=== PATIENT | male | born 1965 | race Two or more races ===

== ENCOUNTER 2020-06-09 22:21 | Inpatient (IN) | payer MEDICAID ==
[~2020-06-09] VITALS: Ht 172.7 cm; Wt 68.9 kg
[2020-06-09] MEDS ORDERED: ASPIRIN 81MG TABLET PO ONE (23:30)
[2020-06-10 00:09] LABS: HEMATOCRIT. 33.8 % (42.0-52.0); HEMOGLOBIN. 11.6 g/dL (14.0-18.0); MEAN CORPUSCULAR VOLUME 81.8 fL (80.0-94.0); MEAN PLATELET VOLUME 9.6 fl (7.4-10.4); PLATELET 204 x1000/uL (130-400); RED BLOOD CELL COUNT 4.13 mill/uL (4.7-6.1); RED CELL DISTRIBUTION WIDTH 13.9 % (11.6-14.6)
[2020-06-10 00:17] LABS: CHLORIDE 96 mEq/L (98-107)
[2020-06-10] MEDS ORDERED: AZITHROMYCIN 500 MG TABLET PO ONE (00:45)
[2020-06-10] MEDS ORDERED: CEFTRIAXONE 1 G PREMIX 50 ML IV ONE (00:45)
[2020-06-10] MEDS ORDERED: ALBUTEROL 6.7GM HFA INHALER ORI PRN (02:15)
[2020-06-10] MEDS ORDERED: MAGNESIUM/ALUMINUM HYDROXIDE/SIMETHICONE 30ML UDC PO PRN (02:15)
[2020-06-10] MEDS ORDERED: ONDANSETRON HCL 4MG/2ML INJ IV PRN (02:15)
[2020-06-10] MEDS ORDERED: ACETAMINOPHEN 325MG TABLET PO PRN (02:15)
[2020-06-10] MEDS ORDERED: DEXTROSE 50% WATER 50ML SYRINGE IV PRN (02:15)
[2020-06-10] MEDS ORDERED: CLONIDINE 0.1MG TABLET PO PRN (02:15)
[2020-06-10] MEDS ORDERED: LORAZEPAM 0.5MG TABLET PO PRN (02:15)
[2020-06-10 04:46] LABS: PLATELET ESTIMATE NORMAL
[2020-06-10 06:52] VITALS: BP 113/73
[2020-06-10] MEDS: BLOOD SUGAR DIAGNOSTIC STRIP TEST SCH ×4 (07:40→20:15)
[2020-06-10 08:00] VITALS: BP 104/56
[2020-06-10] MEDS ORDERED: DEXAMETHASONE 4MG TABLET PO SCH (09:00)
[2020-06-10] MEDS: GUAIFENESIN 600MG ER TABLET PO SCH ×2 (09:08→20:20)
[2020-06-10] MEDS: ENOXAPARIN 80MG/0.8ML SYR SUBCUT SCH ×2 (09:09→20:21)
[2020-06-10] MEDS: INSULIN LISPRO 100 UNITS/ML SUBCUT SCH ×4 (09:10→20:24)
[2020-06-10 09:53] LABS: INR 1.1; PROTHROMBIN TIME 11.2 sec (9.6-11.0)
[2020-06-10] MEDS ORDERED: INSULIN GLARGINE UD 100 UNITS/ML SYR SUBCUT SCH (10:00)
[2020-06-10 12:00] VITALS: BP 126/69
[2020-06-10 16:00] VITALS: BP 103/62
[2020-06-10 17:18] LABS: *BARBITURATES SCREEN URINE NEGATIVE (NEGATIVE)
[2020-06-10 17:19] LABS: *AMPHETAMINES SCREEN URINE NEGATIVE (NEGATIVE); *BENZODIAZEPINES SCREEN URINE NEGATIVE (NEGATIVE); *COCAINE SCREEN URINE NEGATIVE (NEGATIVE); CANNABINOID URINE SCREEN NEGATIVE (NEGATIVE); METHADONE URINE SCREEN NEGATIVE (NEGATIVE); OPIATES URINE SCREEN NEGATIVE (NEGATIVE)
[2020-06-10 17:20] LABS: PHENCYCLIDINE URINE SCREEN NEGATIVE (NEGATIVE)
[2020-06-10] MEDS: SODIUM CHLORIDE 0.9% INJ 3ML FLUSH IVF SCH (17:42)
[2020-06-10 20:00] VITALS: BP 109/67
[2020-06-10] MEDS ORDERED: ZOLPIDEM TARTRATE 5MG TABLET PO PRN (21:00)
[2020-06-11] VITALS: BP 94/55
[2020-06-11] MEDS: SODIUM CHLORIDE 0.9% INJ 3ML FLUSH IVF SCH ×4 (00:02→20:40)
[2020-06-11] MEDS ORDERED: CEFTRIAXONE 1,000 MG in DEXTROSE 5% WATER 50 ML IV SCH (01:30)
[2020-06-11] MEDS ORDERED: AZITHROMYCIN 500 MG in DEXT 5% WATER 250 ML IV SCH (02:00)
[2020-06-11 04:00] VITALS: BP 107/51
[2020-06-11 05:57] LABS: BASOPHILS % 0.2 % (0.0-2.0); HEMATOCRIT. 28.6 % (42.0-52.0); LYMPHOCYTES % 8.4 % (20.0-50.0); MEAN CORPUSCULAR HEMOGLOBIN 28.2 pg (28.0-32.0); MEAN CORPUSCULAR VOLUME 80.4 fL (80.0-94.0); MEAN PLATELET VOLUME 9.7 fl (7.4-10.4); MONOCYTES % 4.1 % (2.0-8.0); NEUTROPHILS % 87.3 % (40.0-76.0); PLATELET 166 x1000/uL (130-400); RED BLOOD CELL COUNT 3.56 mill/uL (4.7-6.1); RED CELL DISTRIBUTION WIDTH 13.8 % (11.6-14.6)
[2020-06-11] MEDS: BLOOD SUGAR DIAGNOSTIC STRIP TEST SCH ×4 (06:02→20:26)
[2020-06-11] MEDS: INSULIN LISPRO 100 UNITS/ML SUBCUT SCH ×4 (06:10→20:35)
[2020-06-11 08:00] VITALS: BP 117/62
[2020-06-11 08:47] LABS: CHLORIDE 98 mEq/L (98-107)
[2020-06-11] MEDS: GUAIFENESIN 600MG ER TABLET PO SCH ×2 (09:53→20:32)
[2020-06-11] MEDS: ENOXAPARIN 80MG/0.8ML SYR SUBCUT SCH ×2 (09:53→20:33)
[2020-06-11] MEDS ORDERED: INSULIN GLARGINE UD 100 UNITS/ML SYR SUBCUT SCH (10:00)
[2020-06-11 12:00] VITALS: BP 104/56
[2020-06-11 16:00] VITALS: BP 117/71
[2020-06-11 20:00] VITALS: BP 117/70
[2020-06-12] VITALS: BP 127/70
[2020-06-12] MEDS: CEFTRIAXONE 1,000 MG in DEXTROSE 5% WATER 50 ML IV SCH (02:06)
[2020-06-12] MEDS: AZITHROMYCIN 500 MG in DEXT 5% WATER 250 ML IV SCH (02:32)
[2020-06-12 04:00] VITALS: BP 99/55
[2020-06-12] MEDS: BLOOD SUGAR DIAGNOSTIC STRIP TEST SCH ×4 (05:34→21:00)
[2020-06-12] MEDS: SODIUM CHLORIDE 0.9% INJ 3ML FLUSH IVF SCH ×3 (05:34→20:41)
[2020-06-12] MEDS: INSULIN LISPRO 100 UNITS/ML SUBCUT SCH ×4 (06:19→22:11)
[2020-06-12 08:00] VITALS: BP 106/59
[2020-06-12] MEDS: GUAIFENESIN 600MG ER TABLET PO SCH ×2 (09:15→20:15)
[2020-06-12] MEDS: ENOXAPARIN 80MG/0.8ML SYR SUBCUT SCH (09:16)
[2020-06-12] MEDS ORDERED: INSULIN GLARGINE UD 100 UNITS/ML SYR SUBCUT SCH (10:00)
[2020-06-12] MEDS: INSULIN GLARGINE UD 100 UNITS/ML SYR SUBCUT SCH (11:29)
[2020-06-12 11:52] VITALS: BP 100/56
[2020-06-12] MEDS ORDERED: IPRATROPIUM/ALBUTEROL 0.5-3(2.5)MG/3ML NEB HHN PRN (14:00)
[2020-06-12 16:00] VITALS: BP 104/63
[2020-06-12 20:00] VITALS: BP 98/49
[2020-06-12] MEDS: IPRATROPIUM/ALBUTEROL 0.5-3(2.5)MG/3ML NEB HHN SCH (21:07)
[2020-06-13] VITALS: BP 112/63
[2020-06-13] MEDS: CEFTRIAXONE 1,000 MG in DEXTROSE 5% WATER 50 ML IV SCH (01:31)
[2020-06-13] MEDS: IPRATROPIUM/ALBUTEROL 0.5-3(2.5)MG/3ML NEB HHN SCH ×4 (01:31→20:46)
[2020-06-13] MEDS: AZITHROMYCIN 500 MG in DEXT 5% WATER 250 ML IV SCH (03:22)
[2020-06-13 04:00] VITALS: BP 98/60
[2020-06-13] MEDS: INSULIN LISPRO 100 UNITS/ML SUBCUT SCH ×4 (06:15→21:06)
[2020-06-13] MEDS: SODIUM CHLORIDE 0.9% INJ 3ML FLUSH IVF SCH ×3 (06:16→21:05)
[2020-06-13] MEDS: BLOOD SUGAR DIAGNOSTIC STRIP TEST SCH ×4 (06:16→21:07)
[2020-06-13 08:00] VITALS: BP 112/72
[2020-06-13] MEDS: INSULIN GLARGINE UD 100 UNITS/ML SYR SUBCUT SCH (09:52)
[2020-06-13 11:50] VITALS: BP 121/72
[2020-06-13] MEDS: GUAIFENESIN 600MG ER TABLET PO SCH ×2 (14:10→21:05)
[2020-06-13] MEDS: LEVOFLOXACIN 500MG TABLET PO SCH (15:56)
[2020-06-13 16:00] VITALS: BP 126/73
[2020-06-13 20:00] VITALS: BP 107/52
[2020-06-14] VITALS: BP 110/67
[2020-06-14] MEDS: IPRATROPIUM/ALBUTEROL 0.5-3(2.5)MG/3ML NEB HHN SCH ×4 (01:55→21:10)
[2020-06-14 04:00] VITALS: BP_SYST 105; BP_SYST 115; BP_DIAS 64; BP_DIAS 71
[2020-06-14] MEDS: SODIUM CHLORIDE 0.9% INJ 3ML FLUSH IVF SCH ×3 (06:00→22:00)
[2020-06-14] MEDS: BLOOD SUGAR DIAGNOSTIC STRIP TEST SCH ×4 (06:25→20:30)
[2020-06-14] MEDS: INSULIN LISPRO 100 UNITS/ML SUBCUT SCH ×4 (06:58→20:53)
[2020-06-14 07:53] VITALS: BP 109/70
[2020-06-14 09:09] LABS: ABSOLUTE EOSINOPHILS 0.1 x10E3/uL (0.0-0.4); ABSOLUTE LYMPHOCYTES 0.7 x10E3/uL (0.7-3.1); ABSOLUTE MONOCYTES 0.2 x10E3/uL (0.1-0.9); ABSOLUTE NEUTROPHILS 7.5 x10E3/uL (1.4-7.0); BASOPHILS 0 % (Not Estab.); HEMATOCRIT 31.5 % (37.5-51.0); HEMOGLOBIN 10.1 g/dL (13.0-17.7); IMMATURE GRANULOCYTES 1 % (Not Estab.); LYMPHOCYTES 8 % (Not Estab.); MEAN CORPUSCULAR HEMOGLOBIN 27.7 pg (26.6-33.0); MEAN CORPUSCULAR HGB CONC. 32.1 g/dL (31.5-35.7); MEAN CORPUSCULAR VOLUME 87 fL (79-97); MONOCYTES 3 % (Not Estab.); NEUTROPHILS 87 % (Not Estab.); PLATELETS 206 x10E3/uL (150-450); RBC 3.64 x10E6/uL (4.14-5.80); RED CELL DISTRIBUTION WIDTH 13.6 % (11.6-15.4); WBC 8.5 x10E3/uL (3.4-10.8)
[2020-06-14 09:26] LABS: BG BASE EXCESS 1.2 mmol/L (-2.0-2.0); BG CARBOXYHEMOGLOBIN 0.4 % (0.5-1.5); BG DEOXYHEMOGLOBIN 3.7 % (0.0-5.0); BG FRACTION INSPIRED OXYGEN 32; BG HCO3 ACT 24.2 mmol/L (22.0-26.0); BG METHEMOGLOBIN 0.2 % (0.0-1.5); BG OXYGEN SATURATION 96.3 % (92.0-98.5); BG OXYHEMOGLOBIN 95.7 % (94.0-97.0); BG PCO2 32.8 mmHg (35.0-45.0); BG PH 7.485 (7.350-7.450); BG SAMPLE SITE LEFT RADIAL; BG TOTAL HEMOGLOBIN 11.5 g/dL (12.0-18.0); BG VENT MODE NASAL CANNULA
[2020-06-14] MEDS: GUAIFENESIN 600MG ER TABLET PO SCH ×2 (09:59→20:31)
[2020-06-14] MEDS: INSULIN GLARGINE UD 100 UNITS/ML SYR SUBCUT SCH (10:00)
[2020-06-14 12:00] VITALS: BP 102/66
[2020-06-14] MEDS: LEVOFLOXACIN 500MG TABLET PO SCH (12:18)
[2020-06-14 13:06] LABS: % CD 3 POS. LYMPHOCYTES 46.7 % (57.5-86.2); % CD 4 POS. LYMPHOCYTES 6.1 % (30.8-58.5); % CD 8 POS. LYMPH 40.8 % (12.0-35.5); ABSOLUTE CD 3 327 /uL (622-2402); ABSOLUTE CD 4 HELPER 43 /uL (359-1519); ABSOLUTE CD 8 SUPPRESSOR 286 /uL (109-897); CD4/CD8 RATIO 0.15 (0.92-3.72)
[2020-06-14 16:00] VITALS: BP 99/58
[2020-06-14 20:46] VITALS: BP 101/62
[2020-06-15] VITALS (7 sets, daily range): BP systolic 101–116; BP diastolic 60–74
[2020-06-15] MEDS: IPRATROPIUM/ALBUTEROL 0.5-3(2.5)MG/3ML NEB HHN SCH ×3 (02:33→14:31)
[2020-06-15] MEDS: SODIUM CHLORIDE 0.9% INJ 3ML FLUSH IVF SCH ×2 (05:53→16:27)
[2020-06-15] MEDS: BLOOD SUGAR DIAGNOSTIC STRIP TEST SCH ×2 (06:10→11:39)
[2020-06-15] MEDS: INSULIN LISPRO 100 UNITS/ML SUBCUT SCH ×2 (06:17→11:49)
[2020-06-15] MEDS: GUAIFENESIN 600MG ER TABLET PO SCH (09:27)
[2020-06-15] MEDS: INSULIN GLARGINE UD 100 UNITS/ML SYR SUBCUT SCH (09:53)
[2020-06-15] MEDS: LEVOFLOXACIN 500MG TABLET PO SCH (10:03)
== END 2020-06-15 18:41 | disposition home or self-care (01) | DRG 720 ==
LOC: ER 22:21 → 7WST 06-10 00:46 → ENRESERV 06-10 04:39 → CANRESERV 06-10 04:46 → ENRESERV 06-10 04:54 → 8WST 06-10 15:43
PROVIDERS: ADMIT Internal Medicine; ATTEND Internal Medicine
DX: A41.9 Sepsis, unspecified organism (principal); J18.9 Pneumonia, unspecified organism; E87.1 Hypo-osmolality and hyponatremia; E43 Unspecified severe protein-calorie malnutrition; E11.9 Type 2 diabetes mellitus without complications; Z20.828 Contact with and (suspected) exposure to other viral communicable diseases; D64.9 Anemia, unspecified; Z60.2 Problems related to living alone; J96.01 Acute respiratory failure with hypoxia; Z59.0 Homelessness; Z68.23 Body mass index [BMI] 23.0-23.9, adult
CPT/HCPCS: 36415; 36600; 71045; 80053; 80305; 82375; 82805; 82962; 83036; 83735; 83880; 84100; 84484; 85025; 86359; 86360; 87070; 93005; 94640; 99291; J0456; J0696; J1650; J1815; J7060; J8540; U0003-CS